=== PATIENT | female | born 1990 | race Caucasian/White ===

== ENCOUNTER 2016-12-20 21:26 | Inpatient (IN) | payer BC, OTHER ==
[2016-12-20] MEDS: NS 0.9% 1000 ML* 2,000 ML IV ONE ×3 (21:48→22:23)
[2016-12-20 21:56] LABS: Hematocrit 45 % (35-47); Hemoglobin 15.2 g/dl (12.0-16.0); Mean Corpuscular HGB Conc 34 g/dl (31-36); Mean Corpuscular Hemoglobin 32 pg (27-31); Mean Corpuscular Volume 92 fL (80-97); Mean Platelet Volume 9 um3 (7.4-10.4); Red Blood Count 4.82 10^6/ul (4.0-5.4); Red Cell Distribution Width 14 % (10.5-15); White Blood Count 4.1 10^3/ul (3.5-10.8)
[2016-12-20 22:11] LABS: ALT 18 U/L (7-52); AST 19 U/L (13-39); Albumin 4.7 g/dL (3.2-5.2); Alkaline Phosphatase 50 U/L (34-104); Anion Gap 14 mmol/L (2-11); BUN/Creatinine Ratio 8.8 (8-20); Blood Urea Nitrogen 6 mg/dL (6-24); C Reactive Protein < 1.00 mg/L (< 5.00); CO2 Carbon Dioxide 24 mmol/L (22-32); Calcium 9.6 mg/dL (8.6-10.3); Chloride 105 mmol/L (101-111); Creatine Kinase 54 U/L (10-223); EGFR African American 136.7 (>60); EGFR Non-African American 106.3 (>60); Globulin 3.8 g/dL (2-4); Glucose 81 mg/dL (70-100); Lipase 15 U/L (11.0-82.0); Magnesium 2.3 mg/dL (1.9-2.7); Potassium 3.5 mmol/L (3.5-5.0); Sodium 143 mmol/L (133-145); Total Protein 8.5 g/dL (6.4-8.9)
[2016-12-20 22:14] LABS: Troponin I 0.01 ng/mL (<0.04)
[2016-12-20 22:53] LABS: Acetaminophen < 15 mcg/mL; Alcohol 240 mg/dL (<10); Salicylate < 2.50 mg/dL (<30)
[2016-12-20 23:03] LABS: TSH (Thyroid Stimulating Horm) 24.29 mcIU/mL (0.34-5.60)
[2016-12-21] MEDS ORDERED: NS 0.9% 1000 ML* 1,000 ML IV SCH (02:15)
[2016-12-21 05:11] LABS: Free T4 0.58 ng/dL (0.61-1.12)
[2016-12-21 05:15] LABS: Total T3 1.24 ng/mL (0.87-1.78)
--- NOTE | 2016-12-21 06:46 | ED ---
I, Tung,Lux, scribed for Jasper Sher MD on 12/20/16 at 2202 . Substance Abuse/Use - HPI Summary HPI Summary: LEVEL 5 CAVEAT secondary to AMS. Family member/private wealth advisor is present at bedside and provides HPI. This 26 y/o female presents to ED after intentional OD on 36 pills of lorazepam 0.25 mg and drinking EtOH this evening. Family members present at bedside reports that pt probably consumed her pills and alcohol around 2039 PM. They also confirm suicidal intent behind today's OD. Pt is stage III CA pt. Primary care involves [facility]. - History Of Current Complaint Chief Complaint: EDAltMentalStatus Stated Complaint: MEDICATION OVERDOSE Time Seen by Provider: 12/20/16 21:33 Hx Obtained From: Patient, Medical Records Hx From Patient Unobtainable Due To: Altered Mental Status Ingestion History: Type/Name Of Drug - Lorazepam 0.25 mg, Amount Ingested - 36 pills, Approximate Time Of Ingestion - 2039 PM Overdose Characteristics: Oral Character: Stuporous Aggravating Factor(s): Nothing Alleviating Factor(s): Nothing Associated Signs And Symptoms: Intentional Ingestion - Allergies/Home Medications Allergies/Adverse Reactions: Allergies Allergy/AdvReac Type Severity Reaction Status Date / Time Penicillins Allergy Intermediate Swelling Verified 10/11/13 17:25 PMH/Surg Hx/FS Hx/Imm Hx - Surgical History Surgery Procedure, Year, and Place: tonsillectomy - Family History Known Family History: Positive: Diabetes - Social History Substance Use Type: Reports: None Review of Systems - ROS Summary Review of Systems Summary: LEVEL 5 CAVEAT secondary to AMS Negative: Fever Neurological: Other - Stuporous Positive: Depressed All Other Systems Reviewed And Are Negative: No Physical Exam Triage Information Reviewed: Yes Vital Signs On Initial Exam: Initial Vitals Temp Pulse Resp BP Pulse Ox 98.8 F 120 17 111/83 99 12/20/16 21:33 12/20/16 21:33 12/20/16 21:33 12/20/16 21:33 12/20/16 21:33 Vital Signs Reviewed: Yes Appearance: Positive: Well-Appearing, No Pain Distress Skin: Positive: Warm, Dry Head/Face: Positive: Normal Head/Face Inspection Neck: Positive: Supple, Nontender Respiratory/Lung Sounds: Positive: Clear to Auscultation, Breath Sounds Present Cardiovascular: Positive: RRR, Pulses are Symmetrical in both Upper and Lower Extremities Abdomen Description: Positive: Nontender, No Organomegaly, Soft Musculoskeletal: Positive: Strength/ROM Intact Neurological: Positive: Sensory/Motor Intact Psychiatric: Positive: Depressed, Other - Stuporous Diagnostics - Vital Signs Vital Signs Temp Pulse Resp BP Pulse Ox 12/21/16 04:01 107 100/77 99 12/21/16 04:00 106 100 12/21/16 03:30 99/78 12/21/16 03:24 118 100 12/21/16 03:05 93/67 12/21/16 03:00 78 18 76/53 97 12/21/16 02:30 76 17 85/55 98 12/21/16 02:02 81 19 83/56 97 12/21/16 02:00 81 21 80/51 97 12/21/16 01:30 80 20 80/53 99 12/21/16 01:00 82 20 93/63 97 12/21/16 00:30 84 21 90/63 97 12/21/16 00:01 88 18 91/73 99 12/21/16 00:00 80 20 99 12/20/16 23:45 77 18 99 12/20/16 23:30 73 15 92/73 100 12/20/16 23:00 80 19 88/63 98 12/20/16 22:30 87 21 90/63 97 12/20/16 22:12 90 22 92/62 97 12/20/16 22:02 89/66 12/20/16 22:00 92 23 87/65 97 12/20/16 21:48 98.5 F 98 24 93/76 12/20/16 21:46 113 17 95 12/20/16 21:44 93/76 12/20/16 21:33 98.8 F 120 17 111/83 99 - Laboratory Lab Results: Lab Results 12/20/16 12/20/16 12/20/16 Range/Units 21:45 21:45 21:45 WBC 4.1 (3.5-10.8) 10^3/ul RBC 4.82 (4.0-5.4) 10^6/ul Hgb 15.2 (12.0-16.0) g/dl Hct 45 (35-47) % MCV 92 (80-97) fL MCH 32 H (27-31) pg MCHC 34 (31-36) g/dl RDW 14 (10.5-15) % Plt Count 159 (150-450) 10^3/ul MPV 9 (7.4-10.4) um3 Neut % (Auto) 50.1 (38-83) % Lymph % (Auto) 40.8 (25-47) % [place] % (Auto) 7.8 (1-9) % Eos % (Auto) 0.3 (0-6) % Baso % (Auto) 1.0 (0-2) % Absolute Neuts (auto) 2.0 (1.5-7.7) 10^3/ul Absolute Lymphs (auto) 1.7 (1.0-4.8) 10^3/ul Absolute Monos (auto) 0.3 (0-0.8) 10^3/ul Absolute Eos (auto) 0 (0-0.6) 10^3/ul Absolute Basos (auto) 0 (0-0.2) 10^3/ul Absolute Nucleated RBC 0 10^3/ul Nucleated RBC % 0.1 INR (Anticoag Therapy) 0.96 (0.89-1.11) APTT 26.6 (26.0-36.3) seconds Sodium 143 (133-145) mmol/L Potassium 3.5 (3.5-5.0) mmol/L Chloride 105 (101-111) mmol/L Carbon Dioxide 24 (22-32) mmol/L Anion Gap 14 H (2-11) mmol/L BUN 6 (6-24) mg/dL Creatinine 0.68 (0.51-0.95) mg/dL Est GFR ( Amer) 136.7 (>60) Est GFR (Non-Af Amer) 106.3 (>60) BUN/Creatinine Ratio 8.8 (8-20) Glucose 81 (70-100) mg/dL Lactic Acid (0.5-2.0) mmol/L Calcium 9.6 (8.6-10.3) mg/dL Magnesium 2.3 (1.9-2.7) mg/dL Total Bilirubin 0.70 (0.2-1.0) mg/dL AST 19 (13-39) U/L ALT 18 (7-52) U/L Alkaline Phosphatase 50 (34-104) U/L Total Creatine Kinase 54 (10-223) U/L CK-MB (CK-2) 0.7 (0.6-6.3) ng/mL Troponin I 0.01 (<0.04) ng/mL C-Reactive Protein < 1.00 (< 5.00) mg/L Total Protein 8.5 (6.4-8.9) g/dL Albumin 4.7 (3.2-5.2) g/dL Globulin 3.8 (2-4) g/dL Albumin/Globulin Ratio 1.2 (1-3) Lipase 15 (11.0-82.0) U/L TSH 24.29 H (0.34-5.60) mcIU/mL Free T4 Cancelled Total T3 Cancelled Beta HCG, Quant < 0.60 mIU/mL Salicylates < 2.50 (<30) mg/dL Acetaminophen < 15 mcg/mL Serum Alcohol 240 H (<10) mg/dL 12/20/16 12/21/16 Range/Units 21:45 04:26 WBC (3.5-10.8) 10^3/ul RBC (4.0-5.4) 10^6/ul Hgb (12.0-16.0) g/dl Hct (35-47) % MCV (80-97) fL MCH (27-31) pg MCHC (31-36) g/dl RDW (10.5-15) % Plt Count (150-450) 10^3/ul MPV (7.4-10.4) um3 Neut % (Auto) (38-83) % Lymph % (Auto) (25-47) % [place] % (Auto) (1-9) % Eos % (Auto) (0-6) % Baso % (Auto) (0-2) % Absolute Neuts (auto) (1.5-7.7) 10^3/ul Absolute Lymphs (auto) (1.0-4.8) 10^3/ul Absolute Monos (auto) (0-0.8) 10^3/ul Absolute Eos (auto) (0-0.6) 10^3/ul Absolute Basos (auto) (0-0.2) 10^3/ul Absolute Nucleated RBC 10^3/ul Nucleated RBC % INR (Anticoag Therapy) (0.89-1.11) APTT (26.0-36.3) seconds Sodium (133-145) mmol/L Potassium (3.5-5.0) mmol/L Chloride (101-111) mmol/L Carbon Dioxide (22-32) mmol/L Anion Gap (2-11) mmol/L BUN (6-24) mg/dL Creatinine (0.51-0.95) mg/dL Est GFR ( Amer) (>60) Est GFR (Non-Af Amer) (>60) BUN/Creatinine Ratio (8-20) Glucose (70-100) mg/dL Lactic Acid 1.6 (0.5-2.0) mmol/L Calcium (8.6-10.3) mg/dL Magnesium (1.9-2.7) mg/dL Total Bilirubin (0.2-1.0) mg/dL AST (13-39) U/L ALT (7-52) U/L Alkaline Phosphatase (34-104) U/L Total Creatine Kinase (10-223) U/L CK-MB (CK-2) (0.6-6.3) ng/mL Troponin I (<0.04) ng/mL C-Reactive Protein (< 5.00) mg/L Total Protein (6.4-8.9) g/dL Albumin (3.2-5.2) g/dL Globulin (2-4) g/dL Albumin/Globulin Ratio (1-3) Lipase (11.0-82.0) U/L TSH (0.34-5.60) mcIU/mL Free T4 0.58 L Total T3 1.24 Beta HCG, Quant mIU/mL Salicylates (<30) mg/dL Acetaminophen mcg/mL Serum Alcohol (<10) mg/dL Result Diagrams: 12/20/16 21:45 12/20/16 21:45 Lab Statement: Any lab studies that have been ordered have been reviewed, and results considered in the medical decision making process. Course/Dx - Course Assessment/Plan: I INFORMED PATIENT OF TSH RESULTS. SHE WILL F/U WITH HER DOCTOR FOR THE HYPOTHYROIDISM. [facility] PEDING AT SHIFT CHANGE STABLE. - Diagnoses Provider Diagnoses: Mental health problem, Hypothyroid, Overdose, Alcohol intoxication - Physician Notifications Patient Is Medically Stable For: Psych Evaluation - at 0438 AM Discharge - Discharge Plan Condition: Stable Disposition: PSYCHIATRIC FACILITY-[facility] [place] Referrals: Vikas Bowden MD [Primary Care Provider] - The documentation as recorded by the Tung peralta Soohyun accurately reflects the service I personally performed and the decisions made by me, Jasper Sher MD.
[2016-12-21] MEDS ORDERED: Ondansetron ODT TAB* 4 MG PO PRN (13:48)
[2016-12-21] MEDS ORDERED: Ibuprofen TAB* 600 MG PO PRN (13:49)
[2016-12-21] MEDS ORDERED: LORazepam INJ* 2 MG/ML 1 ML VIAL IM ONE (17:42)
[2016-12-21] MEDS ORDERED: diPHENhydraMINE IV* 50 MG/ML 1 ml VIAL (BENADRYL) IM ONE (17:43)
[2016-12-21] MEDS ORDERED: Haloperidol INJ IV/IM* 5 MG/ML AMP IM ONE (17:43)
[2016-12-21] MEDS ORDERED: LORazepam INJ* 2 MG/ML 1 ML VIAL ONE (17:47)
[2016-12-21] MEDS ORDERED: diPHENhydraMINE IV* 50 MG/ML 1 ml VIAL (BENADRYL) ONE (17:47)
[2016-12-21] MEDS ORDERED: Haloperidol INJ IV/IM* 5 MG/ML AMP ONE (17:47)
--- NOTE | 2016-12-21 17:56 | ED ---
real Kennedy Timothy, annaibed for Marcos Ozuna MD on 12/21/16 at 1750 . Progress - Progress Note Progress Note: Jazzy Henry is a 26 yo female presenting to [facility] as an attempted overdose on benzoates and alcohol. At 1748 today, she became very agitated, and began to throw objects around her room. - Consult/PCP Time Called: 09:00 Course/Dx - Course Course Of Treatment: Jazzy Henry is a 26 yo female presenting to [facility] as an attempted overdose on benzoates and alcohol. She was signed out by Dr. Sher. At 1748 today, she became very agitated, and began to throw objects around her room. She was administered haldol, ativan, and benadryl. She will be signed out pending a mental health unit evaluation. - Diagnoses Provider Diagnoses: Mental health problem, Hypothyroid, Overdose, Alcohol intoxication The documentation as recorded by the real peralta Timothy accurately reflects the service I personally performed and the decisions made by , Marcos Ozuna MD.
[2016-12-21] MEDS ORDERED: Al Hydrox/Mg Hydrox/Simet LIQ* 30 ML UDC PO PRN (19:38)
[2016-12-21] MEDS ORDERED: Acetaminophen TAB* 325 MG PO PRN (19:38)
[2016-12-22] MEDS: Clindamycin 1% TOPICAL(NF) TOPICAL SCH ×2 (03:31→09:43)
[2016-12-22] MEDS: Vitamin THERAPEUTIC TAB PO SCH (09:41)
[2016-12-22] MEDS ORDERED: Ibuprofen TAB* 600 MG PO PRN (13:05)
[2016-12-22] MEDS ORDERED: Ondansetron TAB* 4 MG PO PRN (13:05)
[2016-12-22] MEDS ORDERED: [UNRECOGNIZED DRUG - REMARK] TOPICAL PRN (13:05)
[2016-12-22] MEDS ORDERED: Ondansetron ODT TAB* 4 MG PO PRN (13:11)
[2016-12-22] MEDS ORDERED: [UNRECOGNIZED DRUG - OTHER] SUBCUT SCH (15:00)
--- NOTE | 2016-12-22 21:00 | CONS ---
CONSULTATION REPORT: DATE OF CONSULT: 12/22/16 PRIMARY CARE PROVIDER: None. ATTENDING PHYSICIAN WHILE IN THE HOSPITAL: Dr. Jo Ann Banerjee (reported dictated by Mary Vasquez NP). REQUESTING PHYSICIAN FOR CONSULT: Dr. Goss. REASON FOR MEDICAL CONSULT: Medical management of comorbid medical conditions and elevated TSH. HISTORY OF PRESENT ILLNESS: I refer you to the H and P for further details. In short, Ms. Henry is a 26-year-old female patient that presented to the emergency department last night with complaints of suicidal ideation attempting to overdose on benzonatate and alcohol. She was admitted to the [facility] for psychiatric management and stabilization. While still in the [facility], there were concerns because of her medical problems, it was unsure what medication she was taking. In addition to this, there was concern because her TSH was high. In evaluating the patient, she does state that she has been feeling more depressed. In addition to this, she does state that she has a history of melanoma in which she has been receiving interferon and she sees an oncologist down in [place]. Aunt is with the patient who is able to confirm this story with us. She does state that she always feels cold and she has again cold intolerance. She states that she has also gained and putting on weight as well. The patient states that she has not taken her interferon since December 10. She states that she has been following with her oncologist from [place] and things have been going well. There has not been any recurrence of disease. She did have again melanoma on her scalp, which was excised and then had 2 lymph nodes removed and the skin graft and that was her history of cancer. She had told staff yesterday that she had had brain cancer. She denies having any suspicious recurrent lesions to her knowledge and she denies having any chest pain. She states that she is feeling tired and hungry right now and does feel depressed. She came into again ER, was evaluated, and admitted to the [facility], and the hospitalist service was asked to evaluate in consult. PAST MEDICAL HISTORY: Significant for melanoma. PAST SURGICAL HISTORY: She has had a melanoma excision with lymph node excision and skin grafting. MEDICATIONS: Home meds according to the list that we have obtained include: 1. Zofran 4 mg p.o. every 4 hours as needed. 2. Interferon 16 million 700,000 units subcu 3 times a week. She takes it on Tuesdays, , and Sundays. 3. Ativan 0.5 mg every 8 hours as needed. 4. Ibuprofen 600 mg p.o. t.i.d. 5. Clindamycin gel to affected area, one application topically b.i.d. as needed. ALLERGIES TO MEDICATIONS: Include PENICILLIN. FAMILY HISTORY: Reviewed and noncontributory except her in aunt who does have a history of melanoma. SOCIAL HISTORY: She is a pack-a-day smoker for about 10 years. She does state that she does drink alcohol on rare occasional basis. 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 She does not appoint a surrogate decision maker at this point. REVIEW OF SYSTEMS: There are again no documented fevers. She does admit to having her weight increased. Denies chest pain. No orthopnea, no nocturnal dyspnea. There is no rhinorrhea. No sore throat. No thyroid enlargement. Denies having any abdominal pain. No nausea, no vomiting. No dysuria, no frequency. No loss of consciousness. No pruritus and no skin ulcerations. Review of 14 systems completed, all others negative. PHYSICAL EXAM: She did have a blood pressure of 101/63 with a pulse 78, respirations 14, O2 sat 98%, and temperature 97.7. She had blood pressure this morning of 80/40. She is asymptomatic and repeat pressures are pending. HEENT: Head is atraumatic and normocephalic. Eyes: EOMs are intact. Sclerae are anicteric, not pale. Throat: Oral mucosa appears to be moist. No oropharyngeal erythema. Neck: Supple. Lungs: Clear to auscultation bilaterally. No wheezes, rales, or rhonchi. Heart: Sounds S1, S2. Regular rate and rhythm. No murmurs, rubs, or gallops. Abdomen: Soft, flat, and nontender. Bowel sounds present. Extremities: Pulses 2+ throughout. She is able to move all 4 extremities with 5/5 strength. Neurologically, she is awake , alert, oriented x3. Tongue midline. Metal Burnisher equal. No gross focal deficits. Skin is grossly intact. DIAGNOSTIC STUDIES/LAB DATA: Today revealed a WBC of 4.1, RBC 4.82, hemoglobin 15.2, hematocrit of 45, platelet count of 159. INR of 0.96, PTT at 26.6. Sodium 134, potassium , chloride 105, bicarb 24, BUN 6, creatinine 0.68, glucose 81, lactate 1.6, calcium 9.6. Total bili 0.7, AST 19, ALT 18, alk phos 50. CK 54, CK- MB 0.7. Troponin 0.01. CRP less than 1. TSH was 24.29, free T4 was 0.58. Beta hCG was negative. Alcohol level on admission was 240. EKG on admission showed sinus tachycardia at a rate of 113. No ST elevations or T- wave inversions. Old medical records were reviewed. ASSESSMENT AND PLAN: Ms. Henry is a 26-year-old female patient coming into the psychiatric services for complaints of suicidal ideation with attempts of overdose. Hospitalist service was asked to evaluate in consult. Recommendations at this point are: 1. Depression, suicidal ideation. I will defer the management to Psychiatry, but again the hypothyroidism may be is playing a role in this, so I did start her on a lower dose of Synthroid. 2. Hypothyroidism. Again, she will need followup with primary. I started her on 25 mcg of p.o. Synthroid for the time being. She has no history of hypothyroidism. 3. Melanoma. I did confirm with her oncology office the dose of her interferon and she is supposed to be on this 3 times a week which I did order. She apparently brought this into the pharmacy and we are trying to track down the medication to give to her. We will start this today. In addition, to follow with her primary oncologist. 4. DVT prophylaxis. I will defer to the primary team. 5. Fluids, electrolytes, and nutrition. She can have a regular diet. 6. Code status. Full code. TIME SPENT: On consult was 50 minutes, greater than half the time spent face-to - face with the patient obtaining history and physical, other half of the time spent going over the plan of care with the patient and implementing the plan of care. I did discuss the plan of care with my attending, Dr. Banerjee; she is in agreement. MARY VASQUEZ NP CC: Dr. Goss [id number]/CPS #: [id number] MERI
--- NOTE | 2016-12-22 21:41 | HP ---
PSYCHIATRIC ASSESSMENT: DATE OF ADMISSION: 12/21/16 JUSTIFICATION FOR ADMISSION: The patient is in need of 24-hour supervision and treatment secondary to suicidal attempt within 72 hours of admission. CHIEF COMPLAINT: "I am here because I wasn't sleeping and that is the only thing that helped." HISTORY OF PRESENT ILLNESS: The patient is a 26-year-old single white female with no known psychiatric history, who does have a medical history of stage III brain cancer, who arrived to the emergency room after taking an intentional overdose of Ativan and alcohol. The patient admitted in the ER "I wanted to " and she had initially agreed to come into the hospital voluntarily. However, as the assessment went on, she became agitated and unwilling to sign voluntary paper work and so she was switched to an involuntary status. At one point, the patient became loud attempting to flee and saying disrespectful things to staff in the emergency room and she was given injectable medication to help calm her down. The patient sees an oncologist at [facility] and takes her own chemotherapy approximately 3 times per week and these medications were brought in by her family. By the time I am seeing the patient, she is now denying suicidality and she is very dismissive of her presenting symptoms. She states that she found out about her brain cancer back in November of 2014 and has been going through immunotherapy at [facility]. She does admit to recent breakup with her boyfriend, but states that she was experiencing severe insomnia and took initially 4 tablets of 0.5 mg Ativan and then later 6 in an attempt to go to sleep. She admits to drinking approximately 2 mixed drinks the entire day. She denies suicidality stating that she has both guns and knives at home and that she had more lethal ways of ending her life if she had really been interested in this. For further collateral, I spoke with her father , Perez Henry. He indicates that she has been struggling ever since the breakup 2 weeks ago with her boyfriend. He states that she had been drinking all day and this would be more consistent with her alcohol level in the emergency room which was at 240. He states that she was on the social media web site called [employer] when she took video of herself taking a handful of pills and sent this to a friend. The friend then alerted the patient's parents who promptly called 911. Her father describes her as a stubborn but he does not believe that she has ever done this before. He notes that she told one of the evaluators in the ER that she had a previous attempt of putting her head below the water during a bath, but she denied this to me. I screened her for depressive symptoms and although she admits to insomnia, she denies all other neurovegetative symptoms other than appetite, which she says is affected by her chemotherapy. PAST PSYCHIATRIC HISTORY: She has been receiving 0.5 mg of lorazepam from her oncologist due to her current anxiety. She denies past psychiatric history including psychiatric medications or psychiatric hospitalizations. She denies any history of suicidal ideations. She does admit to violence towards others when she gets irritable, although she denies homicidality. She denies traumatic brain injury. Denies abuse or any history of neglect. PAST MEDICAL HISTORY: Significant for stage III brain cancer. She also has hypothyroidism. MEDICATIONS: Include: 1. [place] interferon 3 times weekly at an unknown dose. 2. She also takes ibuprofen 600 mg as needed for pain. 3. Ativan 0.5 mg at night. ALLERGIES: She is allergic to PENICILLIN. SUBSTANCE ABUSE HISTORY: She admits to social alcohol drinking but has never been to rehab. She denies illicit drugs and she smokes one-half pack of cigarettes per day. According to her father, she does have a paternal cousin, who has had depression and suicidal ideations in the past, but no other family history of mental illness. SOCIAL HISTORY: The patient was born and raised in [place], [place], and lives with her parents currently, although up until 2 weeks ago, she had been residing with her ex-boyfriend. Her mother is a teacher and her father is an airport electrician. She is an only child and she graduated from [email or web address], then went to [employer], then to [employer], and then to [employer]. 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 She is not , has no kids. She recently broke up with her boyfriend, who she has been dating on and off for the last 2 years. She has no history of sexually transmitted diseases. She does not identify as samaritan. She has no history of service and no significant legal history. REVIEW OF SYSTEMS: The patient indicates that she is tired, fatigued; however, she denies headache or double vision. She denies sore throat, cough, chest pain , difficulty breathing. She denies abdominal pain, nausea, vomiting, diarrhea, or constipation. Denies difficulty ambulating, rashes, enlarged lymph nodes, fevers, or changes in weight. PHYSICAL EXAMINATION VITAL SIGNS: Blood pressure 101/63, heart rate is 78, respiratory rate 14, temperature 98.1 degrees Fahrenheit, oxygen saturations are 98% on room air. HEENT: Head is normocephalic, atraumatic. NECK: Supple. CHEST: Clear to auscultation bilaterally. CARDIAC: Reveals normal heart sounds. ABDOMEN: Soft and nontender. MUSCULOSKELETAL: Reveals no sign of edema. NEUROLOGICAL: She is grossly intact with no focal abnormalities. SKIN: Warm and dry. MENTAL STATUS EXAM: The patient is a young white female with nose piercing. She is wearing a T-shirt and sweat pants. She appears to be fatigued. She is irritable, somewhat difficult to establish a rapport with. Speech is slow without much spontaneity. Mood is dysthymic with a constricted affect. At one time, she becomes tearful. Thought process is linear, goal directed. Thought content is significant for her desire to leave the hospital. She is denying suicidal or homicidal ideations. She denies auditory or visual hallucinations. Insight and judgment appear to be somewhat limited given her insistence on leaving the hospital. Cognitively, she is awake and alert with what appeared to be an average intellect. LABORATORY DATA: Complete blood count was within normal limits as was her complete metabolic panel. Her test was negative. TSH was grossly elevated at 24.3, whereas her free T4 was low at 0.58. Serum alcohol level was 240 indicating that she was quite intoxicated. DIAGNOSES: As follows: [place] I: Adjustment disorder with depressed mood. [place] II: Deferred. [place] III: Stage III brain cancer, hypothyroidism. [place] IV: Severe primary support stressors. [place] V: At the time of admission is 35. IMPRESSION: The patient is a 26-year-old single white female with no psychiatric history, but with a medical diagnosis of brain cancer, who was brought in by EMS after becoming intoxicated and intentionally overdosing on a handful of Ativan tablets. She initially admitted that this was a suicidal attempt, although she is backtracking on that at this point. I have spoken with her family and they are very concerned about her safety and she is currently admitted involuntarily to the inpatient service. PLAN: The patient is admitted to the adult behavioral health unit where she is placed on q.15-minute checks for her own safety. I have consulted the medical service given the patient's ongoing problems with cancer and hypothyroidism. It is clear that her thyroid is undertreated at this time. I think it would be appropriate to contact her oncologist to get a sense of what medications he has been prescribing and to see if he or she has any concerns about her safety. While she is here, she is certainly encouraged to avail herself of all milieu activities including individual and group psychotherapies. We will try our best to develop a therapeutic alliance with the patient and see if we can get her invested in better self-care and more definitive treatment for her depression. [id number]/CPS #: [id number] MERI
[2016-12-23] MEDS ORDERED: Levothyroxine TAB* 25 MCG TAB PO SCH (06:00)
[2016-12-23 08:48] LABS: Hematocrit 39 % (35-47); Hemoglobin 13.6 g/dl (12.0-16.0); Mean Corpuscular HGB Conc 35 g/dl (31-36); Mean Corpuscular Hemoglobin 32 pg (27-31); Mean Corpuscular Volume 93 fL (80-97); Mean Platelet Volume 9 um3 (7.4-10.4); Red Blood Count 4.26 10^6/ul (4.0-5.4); Red Cell Distribution Width 14 % (10.5-15); White Blood Count 4.5 10^3/ul (3.5-10.8)
[2016-12-23 09:15] LABS: BUN/Creatinine Ratio 15.3 (8-20); Calcium 8.4 mg/dL (8.6-10.3); EGFR Non-African American 99.5 (>60); Potassium 3.6 mmol/L (3.5-5.0)
[2016-12-23] MEDS: Vitamin THERAPEUTIC TAB PO SCH (10:50)
--- NOTE | 2016-12-23 11:06 | PN ---
Subjective - Subjective Service Type: 57109 Hosp care 15 min low complexity Subjective: Catherine remains depressed, tearful and somewhat isolative, leaving her room only for meals. She denies SI and is more cooperative with me today, stating that she is homesick and misses her dogs and family. She minimizes the effect of her recent breakup with her boyfriend, stating that she is over him and she dismissively flicks her hand to the side, as if swiping him away. The patient is advised of the depressigenic effects of interferon therapy, as well as possible role of low thyroid in depressed mood. She expresses an understanding of these issues and reports that she has felt for several months that the interferon was affecting her mood. "My Oncologist just blows it off when I complain about it. I'm galileo if I can get through his ward secretary to reach him." The patient states she would like to go home and contracts for safety. Her oncologist is reportedly a Dr. Muñoz from [facility]. Objective - Appearance Appearance: Well Developed/Nourished Dysmorphic Features: No Hygiene: Normal Grooming: Fairly Well Kept - Behavior Psychomotor Activities: Abnormal-Decreased Exhibits Abnormal Movement: No - Attitude and Relatedness Attitude and Relatedness: Cooperative Eye Contact: Good - Speech Quality: Unpressured Latencies: Normal Quantity: Appropriate - Mood Patient's Decription of Mood: "Sad" - Affect Observed Affect: Constricted Affect Consistent with: Dysphoria - Thought Process Patient's Thought Process: Coherent Thought Content: No Passive Wish, No Suicidal Planning, No Homicidal Ideation, No Paranoid Ideation - Sensorium Experiencing Hallucinations: No, Sensorium is Clear Type of Hallucinations: Visual: No, Auditory: No, Command: No - Level of Consciousness Level of Consciousness: Alert Orientation: Yes Intact, Yes Orientated to Time, Yes Orientated to Place, Yes Orientated to Person - Impulse Control Impulse Control: Tenuous - Insight and Judgement Insight and Judgement: Fair - Group Participation Particating in Group Activities: No - Medication Management Medication Management Adherence: Yes Assessment - Assessment Merits Inpatient Hospitalization: For Ongoing Evaluation, For Discharge Planning Inpatient DSM-IV Dx: Unspecified Depressive DO Clinical Impression: 26 y.o. single, white, employed female with a history of malignant melanoma, and no prior psychiatric issues, presents via ambulance following intentional overdose on alcohol and a handful of lorazepam. The patient presents as depressed with constricted affect but denies that this was a suicide attempt and feels safe for discharge home. Plan - Plan Treatment Plan: Name: CATHERINE SORENSEN Birthdate: 1990 [id number] The patient presents with unspecified depressive DO. We were leaning towards a diagnosis of adjustment DO, related to the recent breakup with her long-term boyfriend, however, her hypothryoid presentation and treatment with depressogenic immune-modulating medication (alpha-interpheron) make depression secondary to general medical condition vs. secondary to medication effect viable possibilities on the differential. We have discontinued interpheron and the hospitalist is trying to reach her outpatient oncologist. In addition, she has been started on thyroid replacement. Await family meeting with her father today. Medications: Current Medications Acetaminophen (Tylenol Tab*) 650 mg PO Q4H PRN PRN Reason: PAIN or TEMP > 101 F Al Hydrox/Mg Hydrox/Simethicone (Maalox Plus*) 30 ml PO Q4H PRN PRN Reason: INDIGESTION Clindamycin Phosphate (Cleocin-T 1% Topical(Nf)) 1 applic TOPICAL BID PRN PRN Reason: DRY SKIN Sodium Chloride (Ns 0.9% 1000 Ml*) 1,000 mls @ 150 mls/hr IV PER RATE [facility] Ibuprofen (Motrin Tab*) 600 mg PO TID PRN PRN Reason: PAIN Levothyroxine Sodium (Synthroid Tab*) 25 mcg PO DAILY@0600 [facility] Last Admin: 12/23/16 05:34 Dose: 25 mcg Multivitamins (Theragran Tab*) 1 tab PO DAILY [facility] Last Admin: 12/23/16 10:50 Dose: Not Given Ondansetron HCl (Zofran Odt Tab*) 4 mg PO Q4HR PRN PRN Reason: NAUSEA - Discharge Plan Discharge Plan: Inpatient Hospitalization
--- NOTE | 2016-12-23 17:03 | PN ---
Subjective Date of Service: 12/23/16 Interval History: This is a 26 yo female with a history of melanoma admitted to the psychiatric service for a suicide attempt via ingestion of lorazepam and ETOH. TSH was found to be significantly elevated at 24.2. Hospitalist group was consulted for appropriate management. Notes from her oncologist, Dr Ledbetter, with the [facility] system arrived today. Chart review indicates patient had a stage IIIb tumor with 2/2 sentinel nodes positive but the remaining nodes on additional dissection were negative for malignancy. Most recent PET/CT was negative for metastases. Patient has been treated with interferon A since Mar 2016. Upon further interview patient reports ~35 pound weight loss, fatigue, dry skin and thinning hair. She does not acknowledge a history of depressed mood. She reports she just "hasn't felt up to doing things". Objective Active Medications: Acetaminophen (Tylenol Tab*) 650 mg PO Q4H PRN PRN Reason: PAIN or TEMP > 101 F Al Hydrox/Mg Hydrox/Simethicone (Maalox Plus*) 30 ml PO Q4H PRN PRN Reason: INDIGESTION Clindamycin Phosphate (Cleocin-T 1% Topical(Nf)) 1 applic TOPICAL BID PRN PRN Reason: DRY SKIN Sodium Chloride (Ns 0.9% 1000 Ml*) 1,000 mls @ 150 mls/hr IV PER RATE [facility] Ibuprofen (Motrin Tab*) 600 mg PO TID PRN PRN Reason: PAIN Levothyroxine Sodium (Synthroid Tab*) 25 mcg PO DAILY@0600 [facility] Last Admin: 12/23/16 05:34 Dose: 25 mcg Multivitamins (Theragran Tab*) 1 tab PO DAILY [facility] Last Admin: 12/23/16 10:50 Dose: Not Given Ondansetron HCl (Zofran Odt Tab*) 4 mg PO Q4HR PRN PRN Reason: NAUSEA Vital Signs 12/23/16 07:41 Temperature 98.7 F Pulse Rate 72 Respiratory 16 Rate Blood Pressure 107/70 (mmHg) O2 Sat by Pulse 99 Oximetry Oxygen Devices in Use Now: None Appearance: Well appearing, in NAD. Pleasant interaction. Skin: - - thinning hair noted with a bald spot over the L parietal region that she reports was skin graft Neurological: Alert and Oriented x 3 Result Diagrams: 12/23/16 08:12 12/23/16 08:12 Additional Lab and Data: Laboratory Tests 12/20/16 12/21/16 21:45 04:26 TSH 24.29 H Free T4 0.58 L Total T3 1.24 Assess/Plan/Problems-Billing Assessment: This is a 26 yo female with a stage IIIb melanoma tumor currently being treated with interferon A by oncology in the [facility] system. She presented with a suicide attempt and noted to be in a hypothyroid state. Hospitalist group has been asked to consult. - Patient Problems (1) Suicidal behavior Comment: Management per psychiatry Consider that her hypothyroidism and use of interferon A may be significantly contributing to her depressive symptoms (2) Hypothyroidism Comment: TSH 24.2 with low free T4 Initially started at 25mcg levothyroxine Seeing as she is young and otherwise healthy, she can be increased to a full dose that based on her weight is ~90 mcg daily, will start 100 mcg Recommend repeating TSH and free T4 in 4 weeks (3) Melanoma Comment: Patient is under the care of Dr Ledbetter with [facility] for oncology care Currently on maintenence interferon A Unsure of what the recommended length of therapy is for this malignancy Would strongly suggest reviewing her treatment options with oncology to a regimen that does not include interferon given this recent suicide attempt Status and Disposition: Hospitalist group will sign off at this time. Recommend patient be sent home with a prescription for 100 mcg of levothyroxine with instructions to repeat TSH /free T4 in 4 weeks as well as close follow up with oncology.
--- NOTE | 2016-12-24 02:55 | CONS ---
CONSULTATION REPORT: DATE OF CONSULT: 12/23/16 REASON FOR CONSULTATION: History of melanoma. HISTORY OF PRESENT ILLNESS: Jazzy Henry is a 26-year-old female who was recently admitted to the mental health unit. Her oncology history dates back to last spring when she noticed a lesion on the left side of her scalp. 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 This was initially staged as a T3N2a melanoma. She had 2/2 positive sentinel lymph nodes. In February 2016, she then underwent a radical neck dissection, which revealed no further lymph nodes in the posterolateral left neck. Starting on 03/16/16, the patient underwent adjuvant therapy with interferon. She received standard high-dose interferon 5 days per week intravenously. In the midst of this course of therapy through [facility] in [place], [place], her dose had to be reduced by 50% due to elevated LFTs. It took approximately 6 weeks for her to complete 4 weeks of therapy. There subsequently was a gap from 04/27/16 until 06/11/16 before she started her maintenance therapy with interferon 3 days per week subcutaneously. She reports she has remained on maintenance interferon from that period of time until she last took it on December 10. This generally is given for 11 months. She has been receiving a full dose of 10 million units per m.sq. or 16.7 million units. She reports she has had this held on several occasions due to low white counts and due to elevated liver function tests, but typically never for longer than a week. She does take p.r.n. Zofran before taking these pills in the evening and seems to tolerate them quite well. Notes from [facility] showed some elevated LFTs at times, a mildly low ANC at times, and platelet counts just below normal. The patient became more depressed recently after having some issues with her boyfriend and stopped her interferon on December 10, and then had a suicide attempt with an attempted overdose on benzodiazepines and alcohol on December 20. She did agree to come into the hospital voluntarily. She reported to the psychiatry staff that she had "brain cancer," but she clearly recognizes now that this is not true. Following the recent breakup with her boyfriend, she had experienced severe insomnia. During the course of taking her interferon, she reports that she rarely took alcohol, knowing that it could affect her liver function, taking maybe 1 to 2 drinks of alcohol a couple of days per week , but never on the days when she was taking her interferon. PAST MEDICAL HISTORY: The patient has been on 0.5 mg of lorazepam through Oncology at [facility] in [place], [place], for anxiety. She denies any previous psychiatric history or any previous psychiatric medications or hospitalizations. She denies any prior history of suicidal ideation. MEDICATIONS: At the time of the hospitalization included: 1. Ativan. 2. Ibuprofen. 3. Zofran. 4. Interferon. ALLERGIES: PENICILLIN. FAMILY HISTORY: She reports a first cousin on the paternal side who had a depression and was hospitalized at [facility] and reports her mother's half-sister had drug abuse problems and also depression. No other family history of psychiatric disorders. REVIEW OF SYSTEMS: The patient has been much more fatigued recently and during this hospitalization has been found to be hypothyroid with a markedly elevated TSH. She denies any headaches. Denies any visual changes. Denies any significant tingling, numbness, weakness, or other neurologic complaint. She reports that she has had no recent infections. No rashes. No adenopathy. Review of systems is otherwise negative. PHYSICAL EXAM: For this consult is limited. She has an area on the scalp where she has alopecia. There is no evidence for any skin changes there. Neck reveals no significant cervical or supraclavicular adenopathy. Vital signs are stable. IMPRESSION: A 26-year-old female diagnosed almost 1 year ago with a stage III cutaneous melanoma. She has been treated per standard protocol with wide local excision, sentinel node biopsy being positive, then with a completion neck dissection followed by adjuvant interferon. For the most part, she is tolerating the interferon well and reports other than anxiety, has not had any psychiatric or neurologic issues during her course of interferon. She has had interferon held on multiple occasions, mostly during liver function tests and blood counts, but has continued on the therapy and is due to remain on it until May 2017. It should be noted that interferon has a boxed warning of neuropsychiatric disorders. This warning states that it may cause or aggravate severe neuropsychiatric adverse events and to monitor with clinical evaluations periodically and to discontinue treatment for severe, persistent, or worsening symptoms. The psychiatric problems on interferon include suicide and depression. These typically are rapidly reversible within a matter of a few days to a week or two. However, it should be noted that the depression and suicide rates are higher in young individuals with interferon. In adolescent and young adults, the incidence of depression can be as high as 40%, with severe depression in a smaller number. The interferon is being given based on multiple previous trials of 12 months of interferon in stage III melanoma. For the most part, these trials have shown an improvement in relapse-free survival and in 2 of the trials, a modest improvement in overall survival at least in early timeframes. It is definitely appropriate to hold interferon for short periods of time based on toxicity and she has done this several times in the past based on her blood count and based on her liver function tests. At this time, until she is more stable from a psychiatric standpoint, it would be very reasonable to hold her interferon. She was already off of it for 10 days prior to the hospitalization , and I would recommend holding for a minimum of another 7 to 10 days from the time of her suicide attempt. If at that time, she is felt to be stable from a neuropsychiatric standpoint, it would be reasonable to resume her interferon while she is watched carefully as long as her medical oncologist is well aware of recent events. The patient plans to follow up with her medical oncologist in [place], [place]. We will not further consult during this hospitalization unless further questions are posed. [id number]/[facility] #: [id number] MERI
[2016-12-24] MEDS ORDERED: Levothyroxine TAB* 100 MCG TAB PO SCH (06:00)
[2016-12-24] MEDS: Vitamin THERAPEUTIC TAB PO SCH (09:33)
[2016-12-24 11:28] VITALS: BP 108/65
--- NOTE | 2016-12-24 23:26 | DS ---
DISCHARGE SUMMARY: DATE OF ADMISSION: 12/21/16 DATE OF DISCHARGE: 12/24/16 DISCHARGE DIAGNOSES: As follows: Watson I: Unspecified depressive disorder, rule out adjustment disorder with depressed mood versus depression secondary to hypothyroidism versus depression secondary to medication effect. Watson II: Deferred. Watson III: Stage III malignant melanoma, hypothyroidism. Watson IV: Severe primary support stressors. Watson V: At the time of admission was 35 and at the time of discharge was 60. CONDITION AT THE TIME OF DISCHARGE: Stable. The patient is calm and cooperative. She is euthymic with a full affect. She is bright and smiling. We have met with her father as well as spoken with her mother over the phone and family is in agreement with the discharge plan. The patient is future oriented, looking forward to returning to school at [employer]. She is very much willing to follow up with outpatient mental health services in the community. There were a set of stressors which were addressed and ameliorated during this hospitalization and they include untreated hypothyroidism as well as exposure to interferon therapy for her cancer diagnosis, which is known to have neuropsychiatric effect. We have addressed these issues and the patient's mood is considerably better. She is denying suicidal or homicidal ideations. MENTAL STATUS EXAM: At the time of discharge, the patient is a young white female with nose piercing. I noticed a patch of alopecia on her left parietal scalp. She is wearing a green T-shirt and yoga pants. She appears to be calm and cooperative, making good eye contacts. Speech has normal rate, tone, and volume. Mood is euthymic with a full affect. Her thought process is linear and goal directed. Thought content is significant for her desire to be discharged from the hospital. She is denying suicidal or homicidal ideation. She denies auditory or visual hallucinations. Insight and judgment appear to be fair given her willingness to follow up with recommended treatment outside of the hospital. Cognitively, she is awake and alert with what would appear to be an average intellect. DISCHARGE INSTRUCTIONS: To the patient are as follows: A. Medications: She is to take Synthroid 100 mcg p.o. q.a.m. She is to take ibuprofen 600 mg as needed for pain, Ativan 0.5 mg at night as p.r.n. for anxiety. We have temporarily held her interferon therapy and this is not to be resumed until the 30 of December as per the recommendations of the [facility] [place]. B. Diet is regular. C. Activities: As tolerated. The patient is a nonsmoker. D. Followup care: The patient will follow up with the [facility] on December 28, at 9:45 a.m. She will also have a followup appointment with her oncologist, Dr. Ledbetter, at the [facility], that is scheduled for January 07 at 9 a.m. HOSPITAL COURSE: Part - A: Reason for admission: The patient is a 26-year-old , single, white female with no known psychiatric history, who has a medical history of stage III malignant melanoma, who arrived to the emergency room after taking an intentional overdose of Ativan and alcohol. The patient admitted in the ER "I wanted to " and she had initially agreed to come into the hospital voluntarily; however, as the assessment went on, she became agitated and unwilling to sign voluntary paper work and so she was switched to an involuntary status. At one point, the patient became loud, attempting to flee, and saying disrespectful things to the staff in the emergency room, and she was given injectable medication to help calm her down. The patient sees an oncologist at [facility] and takes her own chemo-therapy approximately 3 times per week and these medications were brought in by her family. By the time we are seeing the patient on our unit, she is now denying suicidality and she is very dismissive of her presenting symptoms. She states that she found out about her melanoma back in November of 2014 and has been going through immunotherapy at the [facility] since then. This was after surgical removal from the lesion on her scalp as well as resection of some identified lymph nodes in her neck. She does admit to a recent breakup with her boyfriend but states that she was experiencing severe insomnia and took initially 4 tablets of 0.5 mg Ativan and later 6 in an attempt to go to sleep. She stated at the same time that she drank approximately 2 mixed drinks the entire day. This was somewhat contradicted by her father, who indicates that she had been drinking all day. He states that she took a handful of the Ativan and actually filmed this and posted it on a social media site, which her friends witnessed and they called the parents, who then promptly called 911. Her father describes her stubborn but he does not believe that she has ever done anything like this before. He notes that she had told one of the evaluators in the emergency room in his presence that she had had a previous attempt last fall of putting her head below the water during a bath, but she later denied this to me. I was able to screen her for depressive symptoms and although she admitted to insomnia, she denied all other neurovegetative symptoms of depression other than reduced appetite, which she felt was secondary to chemotherapy. Part - B: Psychiatric treatment rendered: The patient was admitted to the Adult Behavioral Health Unit where she was placed on q.15-minute checks for her own safety. These were almost immediately reduced to q.30-minute checks as she continued to deny suicidal ideations. We did ask for a Medical consult secondary to the fact that she had a grossly elevated TSH at 24.3. They evaluated her and recommended a trial of Synthroid initially at 25 mcg but then increased to 100 mcg. It is known that thyroid conditions have a tendency to cause depression, further complicating factor was issue of her cancer medication. She takes lizeth interferon 3 times weekly and this is the medication that is associated with the onset of depression as well as suicidality. For this reason, the hospitalist service consulted Oncology. She was seen by Dr. Robert Maldonado, who felt that holding her immunotherapy for the time being would be warranted. His official recommendation was to hold interferon for 10 days following the suicide attempt, which would mean that she is to resume this on Wednesday, December 30. Due to the complicating factors of her immunotherapy and hypothyroidism as well as the recent breakup with her boyfriend, it was not entirely clear what her pathology could be defined as. Her official diagnosis is unspecified depressive disorder. We did not feel under the circumstances that antidepressant therapy was warranted at this time; however, we definitely felt that she would require further psychiatric evaluation and treatment in the community. The patient became much more calm, cooperative, and interactive throughout her hospital stay. We had telephone conversations with her mother as well as meeting in person with her father and the family seems very supportive. At this point, the patient's mood appears to be significantly improved and we are discharging her back to the community. She is to follow up with Oncology back at [place] to determine whether perhaps she could discontinue interferon therapy. [id number]/[facility] #: [id number] MERI
== END 2016-12-24 12:10 | disposition home or self-care (01) | DRG 754 ==
LOC: ED 21:26 → BSU 12-21 18:07
PROVIDERS: ADMIT Psychiatry & Neurology Psychiatry; ATTEND Psychiatry & Neurology Psychiatry
DX: F32.9 Major depressive disorder, single episode, unspecified (principal); C43.4 Malignant melanoma of scalp and neck; C77.0 Secondary and unspecified malignant neoplasm of lymph nodes of head, face and neck; F43.21 Adjustment disorder with depressed mood; E03.9 Hypothyroidism, unspecified; T42.4X2A Poisoning by benzodiazepines, intentional self-harm, initial encounter; Y92.009 Unspecified place in unspecified non-institutional (private) residence as the place of occurrence of the external cause
CPT/HCPCS: 36415; 80048; 80053; 80320; 80329; 82550; 82553; 83605; 83690; 83735; 84439; 84443; 84479; 84484; 84702; 85025; 85610; 85730; 86140; 93005; 99222; 99231; 99238; 99254; A9270-GY; G0480; J1200; J1630; J2060

== ENCOUNTER → 2017-05-17 15:05 | Emergency (ER) | payer BC ==
[~2017-05-17 15:05] MED LIST: Clindamycin 600 MG IVPREMIX(* 600 MG/50 ML SDV IV ONE; Ketorolac INJ* 30 MG/ML 1 ML VIAL IV ONE
[2017-05-17 16:36] LABS: Hematocrit 41 % (35-47); Hemoglobin 13.9 g/dl (12.0-16.0); Mean Corpuscular HGB Conc 34 g/dl (31-36); Mean Corpuscular Hemoglobin 33 pg (27-31); Mean Corpuscular Volume 96 fL (80-97); Mean Platelet Volume 9 um3 (7.4-10.4); Red Blood Count 4.28 10^6/ul (4.0-5.4); Red Cell Distribution Width 13 % (10.5-15); White Blood Count 9.8 10^3/ul (3.5-10.8)
[2017-05-17 16:44] LABS: BUN/Creatinine Ratio 15.1 (8-20); C Reactive Protein 3.66 mg/L (< 5.00); Calcium 8.9 mg/dL (8.6-10.3); EGFR Non-African American 97.9 (>60); Potassium 3.8 mmol/L (3.5-5.0); Total Bilirubin 0.5 mg/dL (0.2-1.0)
[2017-05-17 18:16] VITALS: BP 106/68
--- NOTE | 2017-05-18 15:25 | ED ---
Joyce Kennedy Edward, scribed for Carlton Raymond MD on 05/17/17 at 1604 . Skin Complaint - HPI Summary HPI Summary: 26 y/o female c/o presents to ED c/o L facial edema starting yesterday morning at 09:00. The swelling got worse this morning. Pt also c/o numbness and "inner pain" at the area. The pain is located at the L side of the face around the jaw. The pain is rated 8/10 in severity. Denies dental pain. PMHx CA. Pt was at [facility] earlier today and transferred for a CT scan. Pt was dx with cellulitis at [facility]. - History of Current Complaint Chief Complaint: EDGeneral Time Seen by Provider: 05/17/17 16:01 Stated Complaint: LT SIDED FACIAL SWELLING Hx Obtained From: Patient Onset/Duration: Started Days Ago Timing: Constant Current Severity: Severe Pain Intensity: 8 Pain Scale Used: 0-10 Numeric Skin Location: Face - L side Character: Swelling, Pain Associated Signs & Symptoms: Numbness - L side face - Additional Pertinent History Primary Care Physician: [id number] - Allergy/Home Medications Allergies/Adverse Reactions: Allergies Allergy/AdvReac Type Severity Reaction Status Date / Time Penicillins Allergy Intermediate Swelling Verified 05/17/17 15:15 PMH/Surg Hx/FS Hx/Imm Hx Previously Healthy: No Endocrine/Hematology History: Reports: Hx Thyroid Disease - pt denies, however labs off Denies: Hx Diabetes Cardiovascular History: Denies: Hx Hypertension History: Denies: Hx Renal Disease Sensory History: Reports: Hx Contacts or Glasses - supposed to wear glasses Opthamlomology History: Reports: Hx Contacts or Glasses - supposed to wear glasses Psychiatric History: Reports: Hx Eating Disorder, Hx Depression, Hx Suicide Attempt, Hx of Violent Episodes Against Others Denies: Hx [facility] Tx - Cancer History Cancer Type, Location and Year: 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 lymph node removal x2 February 2016. tonsillectomy Infectious Disease History: Denies: Traveled Outside the [place] in Last 30 Days - Family History Known Family History: Positive: Diabetes - Social History Alcohol Use: Weekly Alcohol Amount: "a couple days a week" Hx Substance Use: No Substance Use Type: Reports: None Smoking Status (MU): Current Every Day Smoker Type: Cigarettes Amount Used/How Often: 1/2 PPD Have You Smoked in the Last Year: Yes Review of Systems Constitutional: Negative Eyes: Negative ENT: Negative Cardiovascular: Negative Respiratory: Negative Gastrointestinal: Negative Genitourinary: Negative Musculoskeletal: Negative Skin: Other - Edema, pain and numbness @ L side of face Neurological: Negative Psychological: Normal All Other Systems Reviewed And Are Negative: Yes Physical Exam Triage Information Reviewed: Yes Vital Signs On Initial Exam: Initial Vitals Temp Pulse Resp BP Pulse Ox 98.2 F 75 16 110/73 100 05/17/17 15:15 05/17/17 15:15 05/17/17 15:15 05/17/17 15:15 05/17/17 15:15 Vital Signs Reviewed: Yes Appearance: Positive: Well-Appearing, No Pain Distress Skin: Positive: Warm, Skin Color Reflects Adequate Perfusion, Dry, Other - Swelling and tender @ L sub-mandibular mandibular area. Head/Face: Positive: Normal Head/Face Inspection Eyes: Positive: Normal ENT: Positive: Normal ENT inspection Neck: Positive: Supple, Nontender Respiratory/Lung Sounds: Positive: Clear to Auscultation, Breath Sounds Present Cardiovascular: Positive: RRR Abdomen Description: Positive: Nontender, Soft Bowel Sounds: Positive: Present Musculoskeletal: Positive: Normal Neurological: Positive: Normal Psychiatric: Positive: Normal, Affect/Mood Appropriate Diagnostics - Vital Signs Vital Signs Temp Pulse Resp BP Pulse Ox 05/17/17 15:15 98.2 F 75 16 110/73 100 - Laboratory Lab Results: Lab Results 05/17/17 05/17/17 Range/Units 16:20 16:20 WBC 9.8 (3.5-10.8) 10^3/ul RBC 4.28 (4.0-5.4) 10^6/ul Hgb 13.9 (12.0-16.0) g/dl Hct 41 (35-47) % MCV 96 (80-97) fL MCH 33 H (27-31) pg MCHC 34 (31-36) g/dl RDW 13 (10.5-15) % Plt Count 255 (150-450) 10^3/ul MPV 9 (7.4-10.4) um3 Neut % (Auto) 71.3 (38-83) % Lymph % (Auto) 16.4 L (25-47) % [place] % (Auto) 9.7 H (1-9) % Eos % (Auto) 1.9 (0-6) % Baso % (Auto) 0.7 (0-2) % Absolute Neuts (auto) 7.0 (1.5-7.7) 10^3/ul Absolute Lymphs (auto) 1.6 (1.0-4.8) 10^3/ul Absolute Monos (auto) 1.0 H (0-0.8) 10^3/ul Absolute Eos (auto) 0.2 (0-0.6) 10^3/ul Absolute Basos (auto) 0.1 (0-0.2) 10^3/ul Absolute Nucleated RBC 0 10^3/ul Nucleated RBC % 0 Sodium 136 (133-145) mmol/L Potassium 3.8 (3.5-5.0) mmol/L Chloride 103 (101-111) mmol/L Carbon Dioxide 28 (22-32) mmol/L Anion Gap 5 (2-11) mmol/L BUN 11 (6-24) mg/dL Creatinine 0.73 (0.51-0.95) mg/dL Est GFR ( Amer) 126.0 (>60) Est GFR (Non-Af Amer) 97.9 (>60) BUN/Creatinine Ratio 15.1 (8-20) Glucose 89 (70-100) mg/dL Calcium 8.9 (8.6-10.3) mg/dL Total Bilirubin 0.50 (0.2-1.0) mg/dL AST 13 (13-39) U/L ALT 12 (7-52) U/L Alkaline Phosphatase 36 (34-104) U/L C-Reactive Protein 3.66 (< 5.00) mg/L Total Protein 7.0 (6.4-8.9) g/dL Albumin 4.0 (3.2-5.2) g/dL Globulin 3.0 (2-4) g/dL Albumin/Globulin Ratio 1.3 (1-3) Result Diagrams: 05/17/17 16:20 05/17/17 16:20 Lab Statement: Any lab studies that have been ordered have been reviewed, and results considered in the medical decision making process. Course/Dx - Course Course Of Treatment: Ms. Henry presented with left facial swelling for about a day with some pain in the area of swelling. She was swollen in the left mandibular/ lower face area with mild tenderness. She had some fillings in the molars and premolars in that area without obvious abscess or cellulitis. Her labs were fine and she receinved IV Clindamycin here in the ED. I think she deserves a trial of PO antibiotics at this point and she was cautioned to return of not improving or worsening. - Diagnoses Provider Diagnoses: Facial cellulitis Discharge - Discharge Plan Condition: Stable Disposition: HOME Prescriptions: Clindamycin Cap(NF) [Clindamycin Cap 300 mg Cap(NF)] 300 mg PO Q6H #28 cap Patient Education Materials: Cellulitis (ED) Referrals: Vikas Bowden MD [Primary Care Provider] - 2 Days (PLEASE F/U IF SYMPTOMS DON' T IMPROVE IN 2 DAYS) The documentation as recorded by the Joyce peralta Edward accurately reflects the service I personally performed and the decisions made by me, Carlton Raymond MD.
== END | disposition home or self-care (01) ==
LOC: ED 15:05
DX: L03.211 Cellulitis of face (principal); F32.9 Major depressive disorder, single episode, unspecified; Z85.820 Personal history of malignant melanoma of skin; Z11.4 Encounter for screening for human immunodeficiency virus [HIV]; Z88.0 Allergy status to penicillin; F17.210 Nicotine dependence, cigarettes, uncomplicated
CPT/HCPCS: 36415; 80053; 85025; 86140; 86703; 96365; 96375; 99282; J1885

== ENCOUNTER 2017-05-18 21:11 | Emergency (ER) | payer BC ==
[2017-05-19] MEDS ORDERED: HYDROcodone/ACETAMIN 5-325 MG* 1 TAB PO ONE (00:26)
[2017-05-19] MEDS ORDERED: Ketorolac INJ* 60 MG/2 ML VIAL IM ONE (00:26)
--- NOTE | 2017-05-19 00:32 | ED ---
Throat Pain/Nasal Congestion - HPI Summary HPI Summary: Pt here w/ Lt sided facial pain and swelling. Was seen last night and diagnosed with facial cellulitis after CT imaging, most likely odogenic in origin. She denies dental pain but jaw/face have been getting more swollen and painful since yesterday - pain creeping into cheek, ear and just below eye as well as neck under jaw. Denies fever, chills, difficulty breathing/swallowing, N/V, pain w/ eye movement, headache. Has been taking ibuprofen 800mg every 8 hours w / minimal relief. She was given clindamycin via IV last night and has been taking clindamycin PO since. She had melanoma of the scalp w/ surgical removal here as well as LN's on the cc region on the is side. Was on interferon for months but stopped short of her 1 year scheduled treatment mid April d/t thyroid issues. WBC's are WNL as of last night. 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 Denies: Hx Diabetes Cardiovascular History: Denies: Hx Hypertension History: Denies: Hx Renal Disease Sensory History: Reports: Hx Contacts or Glasses - supposed to wear glasses Opthamlomology History: Reports: Hx Contacts or Glasses - supposed to wear glasses Psychiatric History: Reports: Hx Eating Disorder, Hx Depression, Hx Suicide Attempt, Hx of Violent Episodes Against Others Denies: Hx [facility] Tx - Cancer History Cancer Type, Location and Year: Melanoma on Head/Scalp 2015 Date and Location of Last Treatment: stopped interferon Mid April 2017 d/t thyroid issues Hx Chemotherapy: Yes - Interferon - Surgical History Surgery Procedure, Year, and Place: melanoma excised from scalp 2015. lymph node removal x2 February 2016. tonsillectomy Infectious Disease History: No Infectious Disease History: Denies: Traveled Outside the [place] in Last 30 Days - Family History Known Family History: Positive: Diabetes - Social History Lives: With Family Alcohol Use: Weekly Alcohol Amount: "a couple days a week" Hx Substance Use: No Substance Use Type: Reports: None Hx Tobacco Use: Yes Smoking Status (MU): Current Every Day Smoker Type: Cigarettes Amount Used/How Often: 1/2 PPD Have You Smoked in the Last Year: Yes Review of Systems Constitutional: Negative Negative: Fever, Chills Eyes: Negative ENT: Other - see HPI Cardiovascular: Negative Respiratory: Negative Gastrointestinal: Negative Positive: no symptoms reported Musculoskeletal: Negative Skin: Negative Neurological: Negative Psychological: Normal All Other Systems Reviewed And Are Negative: Yes Physical Exam Triage Information Reviewed: Yes Vital Signs On Initial Exam: Initial Vitals Temp Pulse Resp BP Pulse Ox 97.7 F 79 18 115/72 100 05/18/17 21:14 05/18/17 21:14 05/18/17 21:14 05/18/17 21:14 05/18/17 21:14 Vital Signs Reviewed: Yes Appearance: Positive: Well-Appearing, Well-Nourished, Pain Distress - mild Skin: Positive: Warm, Dry - Lt cheek w/ mild edema - no overlying erythema/ lesions Head/Face: Positive: Other - Lt cheek w/ mild edema in jaw region - TTP - still has nasolabial fold Eyes: Positive: Normal, EOMI, ERNA, Conjunctiva Clear. Negative: Conjunctiva Inflammed, Discharge ENT: Positive: Normal ENT inspection, Hearing grossly normal, Pharynx normal, TMs normal. Negative: Nasal congestion, Nasal drainage, Tonsillar swelling, Tonsillar exudate, Muffled/hoarse voice Dental: Positive: Gross Decay/Caries @ - throughout mouth but #19 most decayed and this is area of buccal and gingival edema on Lt lower side - no putsule, no drainage Neck: Positive: Tenderness @ - Lt submandibular region - mild fullness. Negative: Enlarged Nodes @ Respiratory/Lung Sounds: Positive: Clear to Auscultation, Breath Sounds Present. Negative: Stridor Cardiovascular: Positive: Normal, RRR Musculoskeletal: Positive: Normal, Strength/ROM Intact Neurological: Positive: Normal, Sensory/Motor Intact, Alert, Oriented to Person Place, Time, CN Intact II-III Psychiatric: Positive: Normal Diagnostics - Vital Signs Vital Signs Temp Pulse Resp BP Pulse Ox 05/18/17 21:14 97.7 F 79 18 115/72 100 - Laboratory Lab Statement: Any lab studies that have been ordered have been reviewed, and results considered in the medical decision making process. EENT Course/Dx - Course Course Of Treatment: Pt presents w/ worse swelling and pain along Lt lower jaw/ cheek region. W/o s/sx of systemic infection and doubtful abscess formation overnight, will avoid lancing the area and educated pt about course of anbx ( typically takes 3-4 days to take noticable effect).Provided w/ pain medication and pt's dentist is aware - she will f/u there if swelling worsens but will return to ED if trouble breathing, swallowing, headache or neck pain. - Diagnoses Provider Diagnoses: Facial cellulitis, Dental decay - Provider Notifications Discussed Care Of Patient With: Teto Emmanuel Discharge - Discharge Plan Condition: Stable Disposition: HOME Prescriptions: HYDROcodone/ACETAMIN 5-325 MG* [[place] 5-325 TAB*] 1 tab PO Q6H PRN #20 tab MDD 4 PRN Reason: Pain Patient Education Materials: Cellulitis (ED) Referrals: Vikas Bowden MD [Primary Care Provider] - Additional Instructions: Complete clindamycin You may continue ibuprofen as directed Take norco for breakthrough pain only You may try warm compress on cheek or ice (whichever feels better) You may try warm salt water rinses in your mouth 2-3 x day Follow-up with dentist *If you develop fever, vomiting, trouble breathing, trouble swallowing or pain with eye movement, return to ED
[2017-05-19 00:56] VITALS: BP 123/76
== END 2017-05-19 00:55 | disposition home or self-care (01) ==
LOC: ED 21:11
DX: L03.211 Cellulitis of face (principal); K08.9 Disorder of teeth and supporting structures, unspecified
CPT/HCPCS: 96372; 99282; J1885

== ENCOUNTER 2018-07-06 14:12 | Emergency (ER) | payer BC ==
[2018-07-06 15:15] VITALS: BP 120/73
--- NOTE | 2018-07-06 15:41 | UC ---
Skin Complaint HPI - HPI Summary HPI Summary: 27-year-old woman coming in with complaint of rash. It's right over her sacrum. She noticed it several days ago. It slightly itchy and minimally painful. There is no rash anywhere else she feels well. No fevers no chills. - History of Current Complaint Chief Complaint: UCSkin Time Seen by Provider: 07/06/18 15:25 Stated Complaint: SKIN COMPLAINT Hx Last Menstrual Period: "over a year"; irregular menses Pain Intensity: 0 - Allergy/Home Medications Allergies/Adverse Reactions: Allergies Allergy/AdvReac Type Severity Reaction Status Date / Time Penicillins Allergy Swelling Verified 07/06/18 15:11 Review of Systems Constitutional: Negative Skin: Other - SEE HPI Eyes: Negative ENT: Negative Respiratory: Negative Cardiovascular: Negative Gastrointestinal: Negative Genitourinary: Negative Motor: Negative Neurovascular: Negative Musculoskeletal: Negative Neurological: Negative Psychological: Negative Is Patient Immunocompromised?: No All Other Systems Reviewed And Are Negative: Yes PMH/Surg Hx/FS Hx/Imm Hx Other Endocrine History: NO DIABETES - Surgical History Surgical History: Yes Surgery Procedure, Year, and Place: melanoma excised from scalp 2015. lymph node removal x2 February 2016. tonsillectomy - Family History Known Family History: Positive: Diabetes - Social History Alcohol Use: Weekly Alcohol Amount: "a couple days a week" Substance Use Type: None Smoking Status (MU): Current Every Day Smoker Type: Cigarettes Amount Used/How Often: 1/2 PPD Have You Smoked in the Last Year: Yes - Immunization History Most Recent Influenza Vaccination: this season Most Recent Tetanus Shot: UTD Most Recent Pneumonia Vaccination: unsure Physical Exam Triage Information Reviewed: Yes Appearance: Well-Appearing, No Pain Distress, Well-Nourished Vital Signs: Initial Vital Signs Temp 97.9 F 07/06/18 15:12 Pulse 77 07/06/18 15:12 Resp 18 07/06/18 15:12 BP 120/73 07/06/18 15:12 Pulse Ox 99 07/06/18 15:12 Vital Signs Reviewed: Yes Eye Exam: Normal Eyes: Positive: Conjunctiva Clear Neck exam: Normal Neck: Positive: Supple Respiratory: Positive: No respiratory distress Musculoskeletal Exam: Normal Musculoskeletal: Positive: Strength Intact, ROM Intact Neurological Exam: Normal Neurological: Positive: Alert, Muscle Tone Normal Psychological Exam: Normal Psychological: Positive: Age Appropriate Behavior Skin: Positive: Other - Slightly to the right of the midline over the sacrum there is a 1 cm diameter vesicular rash with a ring of surrounding erythema. This no streaking at all see any other rash. There is no drainage it's not crusting. Course/Dx - Course Course Of Treatment: The rash is most probably shingles. Impetigo is another possibility. We'll treat with VALacyclovir and mupirocin. Patient knows that if she worsens she needs to get a reevaluation. - Diagnoses Provider Diagnoses: RASH Discharge - Sign-Out/Discharge Documenting (check all that apply): Patient Departure All imaging exams completed and their final reports reviewed: No Studies - Discharge Plan Condition: Stable Disposition: HOME Prescriptions: Mupirocin 1 applic TOPICAL TID #22 gm Valacyclovir HCl [Valacyclovir] 1 gm PO TID #21 tab Patient Education Materials: Acute Rash (ED), Shingles (ED) Referrals: Ying Hickey MD [Primary Care Provider] - Additional Instructions: FOLLOW UP WITH YOUR DOCTOR IF NOT COMPLETELY IMPROVED. GET RECHECKED FOR ANY WORSENING OF YOUR CONDITION OR QUESTIONS OR CONCERNS. - Billing Disposition and Condition Condition: STABLE Disposition: Home
== END 2018-07-06 15:46 | disposition home or self-care (01) ==
LOC: UCCORT 14:12
DX: R21 Rash and other nonspecific skin eruption (principal); F17.210 Nicotine dependence, cigarettes, uncomplicated; Z88.0 Allergy status to penicillin
CPT/HCPCS: 99212; G0463